=== PATIENT | male | born 1995 | race American Indian/Alaskan Native ===

== ENCOUNTER 2016-06-09 19:11 | Emergency (ER) | payer MEDICAID | END 2016-06-09 19:35 | disposition left against medical advice (07) | LOC: ED 19:11 | DX: R10.9 Unspecified abdominal pain (principal); R42 Dizziness and giddiness; R11.0 Nausea; Z53.21 Procedure and treatment not carried out due to patient leaving prior to being seen by health care provider ==

== ENCOUNTER 2016-10-14 00:57 | Emergency (ER) | payer MEDICAID ==
[2016-10-14 01:14] VITALS: BP 128/88
[2016-10-14 01:57] LABS: Basophils % (Auto) 0.9 % (0.0-1.8); Eosinophils % (Auto) 3.2 % (0.0-4.3); Mean Corpuscular HGB Conc 35 % (32-34); Mean Corpuscular Hemoglobin 30 pg (28-32); Mean Corpuscular Volume 87 fl (84-94); Platelet Count 250 K/mm3 (140-440); Red Cell Distribution Width 13.5 % (13.2-15.2)
[2016-10-14 02:16] LABS: Anion Gap 20 mmol/L; BUN/Creatinine Ratio 23.33; Blood Urea Nitrogen 21 mg/dL (9-20); Calcium 9.3 mg/dL (8.4-10.2); Carbon Dioxide 21 mmol/L (22-30); Glucose 93 mg/dL (75-100); Sodium 139 mmol/L (137-145)
[2016-10-14 04:30] LABS: Urine Drugs of Abuse Note Disclamer
[2016-10-14 05:12] LABS: Bilirubin,Urine NEG (Negative); Blood,Urine NEG (Negative); Ketones,Urine TR mg/dL (Negative); Leukocyte Esterase,Urine NEG (Negative); Mucus,Urine FEW /HPF; Nitrite,Urine NEG (Negative); Protein,Urine <15 mg/dL mg/dL (Negative); RBC,Urine < 1.0 /HPF (0.0-6.0)
== END 2016-10-14 02:00 | disposition left against medical advice (07) ==
LOC: EEVIPCON 00:57 → ED 00:57
DX: F41.9 Anxiety disorder, unspecified (principal); F31.9 Bipolar disorder, unspecified; F20.9 Schizophrenia, unspecified; Z53.21 Procedure and treatment not carried out due to patient leaving prior to being seen by health care provider
CPT/HCPCS: 36415; 80048; 80307; 81001; 85025; G0480; 80320

== ENCOUNTER 2017-07-28 17:13 | Emergency (ER) | payer MEDICAID ==
[2017-07-28 17:47] VITALS: BP 117/81
--- NOTE | 2017-07-28 18:49 | Emergency Department Report ---
ED Psych HPI - General Chief Complaint: Anxiety Stated Complaint: ANXIETY Time Seen by Provider: 07/28/17 18:32 Source: patient Mode of arrival: Ambulatory - History of Present Illness Initial Comments: Patient is a 22-year-old stacy who is coming in with anxiety type symptoms. Patient states he had an anxiety attack today where he felt like he couldn't breathe and felt very nervous heart was racing he felt as in the past. Patient states his only meds he takes Depakote. Patient is not seeing any mental health specialist at this time for his anxiety bipolar disorder or schizophrenia. Patient denies suicidal or homicidal ideations. States he is not hearing any voices. - Related Data Previous Rx's Medication Instructions Recorded Last Taken Type [place] Carbonate ER [Lithobid ER] 450 mg PO BID #60 tablet 03/31/16 Unknown Rx Olanzapine [ZyPREXA Zydis] 20 mg PO QHS #30 tab.rapdis 03/31/16 Unknown Rx ALPRAZolam [Xanax TAB] 0.25 mg PO BID PRN #7 tab 07/28/17 Unknown Rx Allergies Allergy/AdvReac Type Severity Reaction Status Date / Time No Known Allergies Allergy Unverified 03/31/16 10:28 ED Review of Systems ROS: Stated complaint: ANXIETY Other details as noted in HPI Comment: All other systems reviewed and negative ED Past Medical Hx - Past Medical History Previous Medical History?: Yes Hx Psychiatric Treatment: Yes (bipolar, anxiety diorder, schizoph) - Surgical History Past Surgical History?: No - Social History Smoking Status: Current Every Day Smoker Substance Use Type: None - Medications Home Medications: Home Medications Medication Instructions Recorded Confirmed Last Taken Type [place] Carbonate ER [Lithobid ER] 450 mg PO BID #60 tablet 03/31/16 Unknown Rx Olanzapine [ZyPREXA Zydis] 20 mg PO QHS #30 tab.rapdis 03/31/16 Unknown Rx ALPRAZolam [Xanax TAB] 0.25 mg PO BID PRN #7 tab 07/28/17 Unknown Rx ED Physical Exam - General Limitations: No Limitations General appearance: alert, in no apparent distress - Head Head exam: Present: atraumatic, normocephalic - Eye Eye exam: Present: normal appearance - ENT ENT exam: Present: mucous membranes moist - Neck Neck exam: Present: normal inspection - Respiratory Respiratory exam: Present: normal lung sounds bilaterally. Absent: respiratory distress, wheezes, rales, rhonchi - Cardiovascular Cardiovascular Exam: Present: regular rate, normal rhythm. Absent: systolic murmur, diastolic murmur, rubs, gallop - GI/Abdominal GI/Abdominal exam: Present: soft, normal bowel sounds - Rectal Rectal exam: Present: deferred - Extremities Exam Extremities exam: Present: normal inspection - Back Exam Back exam: Present: normal inspection - Neurological Exam Neurological exam: Present: alert, oriented X3 - Psychiatric Psychiatric exam: Present: normal affect, flat affect - Skin Skin exam: Present: warm, dry, intact, normal color. Absent: rash ED Course Vital Signs 07/28/17 17:44 Temperature 97.8 F Pulse Rate 88 Respiratory 16 Rate Blood Pressure 117/81 O2 Sat by Pulse 98 Oximetry ED Medical Decision Making - Medical Decision Making Patient be referred to [facility] as an outpatient be discharged home Critical care attestation.: If time is entered above; I have spent that time in minutes in the direct care of this critically ill patient, excluding procedure time. ED Disposition Clinical Impression: Anxiety reaction Disposition: DC-01 TO HOME OR SELFCARE Is pt being admited?: No Does the pt Need Aspirin: No Condition: Stable Additional Instructions: Please see referral sheet for [facility] Prescriptions: ALPRAZolam [Xanax TAB] 0.25 mg PO BID PRN #7 tab PRN Reason: Anxiety Referrals: PRIMARY CARE, [Primary Care Provider] - 3-5 Days
== END 2017-07-28 19:03 | disposition home or self-care (01) ==
LOC: ED 17:13
DX: F41.9 Anxiety disorder, unspecified (principal); F31.9 Bipolar disorder, unspecified; F20.9 Schizophrenia, unspecified; F17.200 Nicotine dependence, unspecified, uncomplicated
CPT/HCPCS: 99282